=== PATIENT | male | born 1995 | race Caucasian/White ===

== ENCOUNTER 2021-02-24 14:58 | Emergency (ER) | payer OTHER | END 2021-02-24 19:49 | disposition home or self-care (01) | LOC: ER1 14:58 | DX: J06.9 Acute upper respiratory infection, unspecified (principal); Z20.822 Contact with and (suspected) exposure to COVID-19; F17.200 Nicotine dependence, unspecified, uncomplicated; Z90.89 Acquired absence of other organs | CPT/HCPCS: 99283; U0002 ==

== ENCOUNTER 2021-09-09 21:30 | Emergency (ER) | payer OTHER ==
[2021-09-09 21:59] LABS: HEMOGLOBIN 16.2 gm/dl (14.0-17.5); RED BLOOD COUNT 5.09 M/UL (4.20-5.50); WHITE BLOOD COUNT 10.1 K/UL (4.5-11.0)
[2021-09-09 22:19] LABS: BUN/CREATININE RATIO 9 (0-10)
== END 2021-09-10 09:35 | disposition home or self-care (01) ==
LOC: ER1 21:30
PROVIDERS: Preventive Medicine Occupational Medicine
DX: F10.129 Alcohol abuse with intoxication, unspecified (principal); Y90.8 Blood alcohol level of 240 mg/100 ml or more; F17.200 Nicotine dependence, unspecified, uncomplicated; Z20.822 Contact with and (suspected) exposure to COVID-19
CPT/HCPCS: 70450; 80048; 80307; 81001; 85025; 87086; 99284; G0480; U0002

== ENCOUNTER 2021-10-31 13:19 | Emergency (ER) | payer OTHER ==
[2021-10-31] MEDS ORDERED: CLARITIN-D 241 EACH PO (16:01)
[2021-10-31] MEDS ORDERED: AMOX TR-K CLV1 EAC4 PO (16:01)
== END 2021-10-31 16:08 | disposition home or self-care (01) ==
LOC: ER1 13:19
DX: J01.10 Acute frontal sinusitis, unspecified (principal); F17.200 Nicotine dependence, unspecified, uncomplicated; Z20.822 Contact with and (suspected) exposure to COVID-19
CPT/HCPCS: 0240U; 71045; 99283

== ENCOUNTER 2022-01-26 17:27 | Emergency (ER) | payer OTHER ==
[~2022-01-26 17:27] MED LIST: AMOX TR-K CLV1 EAC4 PO; CLARITIN-D 241 EACH PO
== END 2022-01-26 20:10 | disposition left against medical advice (07) ==
LOC: ER1 17:27
DX: R05.9 Cough, unspecified (principal)
CPT/HCPCS: 71045; 99281